=== PATIENT | female | born 2000 ===

== ENCOUNTER 2021-08-26 22:25 | Inpatient (IN) ==
[~2021-08-26] VITALS: Ht 160 cm; Wt 90.1 kg
[2021-08-26 22:48] VITALS: BP 130/71
[2021-08-26] MEDS ORDERED: PENICILLIN G POTASSIUM IV 5 MU in D5W MINI-BAG PLUS 100 ML IV STA (23:54)
[2021-08-26] MEDS ORDERED: LACTATED RINGER'S 1000 ML IV ONE (23:55)
[2021-08-26] MEDS ORDERED: OXYTOCIN DRIP 30 UNITS in IV 1 EA IV PRN ×4 (23:55)
[2021-08-26] MEDS ORDERED: OXYTOCIN INJ 10 UNITS/ML VIAL (J2590) IV PRN (23:55)
[2021-08-26] MEDS ORDERED: LR 1,000 ML IV SCH (23:55)
[2021-08-27 00:48] LABS: HEMATOCRIT 33.5 % (36.0-47.0); HEMOGLOBIN 10.6 g/dl (12.0-15.5); MEAN CORPUSCULAR HEMOGLOBIN 24.8 pg (27.0-33.0); MEAN CORPUSCULAR HGB CONC 31.6 g/dl (32.0-36.5); MEAN CORPUSCULAR VOLUME 78.5 fl (80.0-96.0); PLATELET COUNT, AUTOMATED 314 10^3/uL (150-450); RED BLOOD COUNT 4.27 10^6/uL (4.00-5.40); WHITE BLOOD COUNT 12.3 10^3/uL (4.0-10.0)
--- NOTE | 2021-08-27 00:48 | HPEPDOC ---
Obstetrical History & Physical General Date of Admission Vital Signs Label Value Date Time Patient Temperature 98.6 degrees F 08/26/212247 Temperature Source Temporal 08/26/212247 Blood Pressure Assessment 130/71 (90) 08/26/212247 Source Automatic Cuff (NIBP) Item Value Date Time Urine Color YELLOW 08/26/212302 Urine Appearance HAZY 08/26/212302 Urine pH 6.0 UNITS 08/26/212302 Urine Specific [place] 1.013 08/26/212302 Urine Protein NEGATIVE mg/dL 08/26/212302 Urine Glucose (UA) NEGATIVE mg/dL 08/26/212302 Urine Ketones NEGATIVE mg/dL 08/26/212302 Urine Blood NEGATIVE 08/26/212302 Urine Nitrite NEGATIVE 08/26/212302 Urine Bilirubin NEGATIVE 08/26/212302 Urine Urobilinogen 0.2 mg/dL 08/26/212302 Urine Leukocyte Esterase 3+ H 08/26/212302 Urine RBC (Auto) 10 /HPF H 08/26/212302 Urine WBC (Auto) 8 /HPF H 08/26/212302 Urine Hyaline Casts (Auto) 0 /LPF 08/26/212302 Urine Bacteria (Auto) 1+ H 08/26/212302 Urine Squamous Epithelial Cells 7 /HPF 08/26/212302 Urine Mucus (Auto) SMALL 08/26/21 2303 Aug 26, 2021 at 23:45 Primary Care Physician: Sam Lamar MD History of Present Illness 08/26/21 21 Y.O AT 37.1 WEEKS WITH PELVIC PRESSURE AND CONTRACTIONS GBS NEGATIVE Chief Complaint: Contractions, term Information Provided By: Patient Age: 21 : 1 Term: 0 Pre-term: 0 Abortions: 0 Livin Care Care: Limited Care Number of Visits: 5 Dating Final EDC: Sep 15, 2021 Final EDC by: LMP LMP: Sep 15, 2021 1st Trimester Date: Apr 13, 2021 Weeks + Days: 18 Estimated Date of Confinement: Sep 15, 2021 EGA at Admission: 37 Antepartum Course Diagnos(e)s EARLY TERM LABOR Height (inches): 63 Pre- weight (lbs.): 152 Admission Weight (lbs.): 197 Change in Weight (lbs.): 45 Past Medical History Past Obstetrical History : 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 Past Medical History Surgical History: Denies/None (THYROID,A FIB TYPE 2 DIABETES) Family History Family History MOTHER HYPOTHYROID GRANDMERE A FIB THYROID GRANDPERE HEART AND TYPE 2 DIABETES Social History Social history NON SMOKER NO ETOH NO VAPING TO AD NO VIOLENCE NO RECREATIONAL DRUGS Marital Status: Psychosocial History: No pertinent psych hx * Smoker: non-smoker Alcohol: Denies Drugs: denies Abuse Violence Screening Have you been hit/kicked/slapp: No Have you been sexually assault: No Imunizations Tdap status: current Influenza Status: needs Allergies Coded Allergies: amoxicillin (Verified Allergy, Mild, vomitting, 08/27/21) Physical Examination Physical Examination GENERAL: Alert and oriented times three. BREAST: . ABDOMEN: Gravid and non-tender to touch. FETUS: Is vertex (VTX) by sterile vaginal examination (SVE), fetus is vertex (VTX) by [place]. HEART RATE: Regular rate and rhythm. LUNGS: Clear to auscultation (CTA). EXTREMITIES: No edema. No clonus. Deep tendon reflexes (DTRs) + . Other physical findings ATRAUMATIC FULL RANGE MOTION PERRLA HEART NO MURMUR NORMAL RHYTHM NO RUBS . CHEST CLEAR TO BASES NO WHEEZE NO RHONCHI NO SOB NO RASHES LESIONS OR PURITIS NO ARTHRALGIA NO MYALGIA NO JOINT PAIN. NO URGENCY NO FREQUENCY NO N/V/D/C/F. PELVIC -2 STATION 3 CM 50% EFFACED MID POSITION SOFT SHOW NOTED GBS NEGATIVE Vital Signs/I&O Vital Signs Date Time Temp Pulse Resp B/P (MAP) Pulse Ox O2 Delivery O2 Flow Rate FiO2 08/26/21 22:48 98.6 08/26/21 22:48 130/71 (90) Laboratory Data 24H LABS Laboratory Tests 2 08/26/21 23:03: Urine Color YELLOW, Urine Appearance HAZY, Urine pH 6.0, Urine Specific [place] 1.013, Urine Protein NEGATIVE, Urine Glucose (UA) NEGATIVE, Urine Ketones NEGATIVE, Urine Blood NEGATIVE, Urine Nitrite NEGATIVE, Urine Bilirubin NEGATIVE, Urine Urobilinogen 0.2, Urine Leukocyte Esterase 3+H, Urine WBC (Auto) 8H, Urine RBC (Auto) 10H, Urine Hyaline Casts (Auto) 0, Urine Bacteria (Auto) 1+H, Urine Squamous Epithelial Cells 7, Urine Mucus (Auto) SMALL, Urine Sperm (Auto) Microbiology Microbiology 08/26/21 Urine Culture, Received Pending Pertinent Laboratoy Data Blood Type: A+ RBC Antibody Screen: Negative HIV: Negative Hepatitis B: Negative Rapid Plasma Reagin: Nonreactive Rubella: Immune Varicella: Immune Chlamydia/Gonorrhea: Negative Group B Streptococcus: Negative Quad Screen Test: Unknown Cystic Fibrosis: Negative Anatomy Ultrasound Ultrasound Date: May 24, 2021 Placenta Location: Anterior Normal Anatomy: Yes (510) Estimated Weight (grams): 510 Steroid Therapy Steroid Therapy: No Vaginal Examination Dilation: 3 cm Effacement: 70% Station: -2 Cervical Consistency: Soft Cervical Position: Middle Presentation: Cephalic presentation Assessment Variability: Moderate Accelerations: Present Decelerations: None Tocometer Contractions: Yes Frequency: regular, every 1-5 min. Duration: less than 60 seconds Strength: palpated as mild Assessment/Plan Assessment 21-year-old (G)1 para (P)0 at 37.1 weeks by 20 -week ultrasound. Presents to Labor and Delivery (L&D) . Plan Admit and orient. Dietary Clerk and consent. Diet: FLUIDS Group B Streptococcus (GBS) [negative]. Labs and intravenous (IV) per unit protocol. Counseled on Pitocin and induction of labor (IOL). Lactated Ringers (LR): Bolus 1000 mL, then at 125 mL/hr. Anticipate [normal spontaneous delivery ()]. C-S as appropriate. Labor and Delivery Counseling REVIEWED VAGINAL DELIVERY WITH POSSIBLE ASSISTANCE WITH FORCEPS OR VACUUM ALSO NEED FOR AUGMENTATION WITH PITOCIN, AND POSSIBLE NEED FOR CS FOR OR MATERNAL INDICATIONS RISKS ARE HEMORRHAGE INFECTION PERFORATION REMOTE BLOOD TRANSFUSION FOR LIFE THREATENING HEMORRHAGE REMOTE NEED FOR HYSTERECTOMY FOR BLEEDING UNCONTROLLED. POSSIBLE ADMITTED TO NICU POSSIBLE NEED FOR REPAIR LACERATIONS EPISIOTOMY REPAIR TO BOWEL BLADDER VAGINA RECTUM EXPRESSED UNDERSTANDING SAFE TO PROCEED Sam Lamar MD Aug 27, 2021 00:45
[2021-08-27] MEDS ORDERED: PENICILLIN G POTASSIUM IV 2.5 MU in IV 1 EA IV SCH (03:55)
--- NOTE | 2021-08-27 07:10 | IPNPDOC ---
Text Note Date of Service Item Value Date Time Urine Color YELLOW 08/26/212302 Urine Appearance HAZY 08/26/212302 Urine pH 6.0 UNITS 08/26/212302 Urine Specific [place] 1.013 08/26/212302 Urine Protein NEGATIVE mg/dL 08/26/212302 Urine Glucose (UA) NEGATIVE mg/dL 08/26/212302 Urine Ketones NEGATIVE mg/dL 08/26/212302 Urine Blood NEGATIVE 08/26/212302 Urine Nitrite NEGATIVE 08/26/212302 Urine Bilirubin NEGATIVE 08/26/212302 Urine Urobilinogen 0.2 mg/dL 08/26/212302 Urine Leukocyte Esterase 3+ H 08/26/212302 Urine WBC (Auto) 8 /HPF H 08/26/212302 Urine RBC (Auto) 10 /HPF H 08/26/212302 Urine Hyaline Casts (Auto) 0 /LPF 08/26/212302 Urine Bacteria (Auto) 1+ H 08/26/212302 Urine Squamous Epithelial Cells 7 /HPF 08/26/212302 Urine Mucus (Auto) SMALL 08/26/212302 Vital Signs Label Value Date Time Patient Temperature 98.6 degrees F 08/26/212247 Temperature Source Temporal 08/26/212247 Blood Pressure Assessment 130/71 (90) 08/26/212247 Source Automatic Cuff (NIBP) The patient was seen on 08/27/21. NOTE Item Value Date Time White Blood Count 12.3 10^3/uL H 08/27/2140 Red Blood Count 4.27 10^6/uL 08/27/21 0041 Hemoglobin 10.6 g/dl L 08/27/21 0041 Hematocrit 33.5 % L 08/27/21 0041 Mean Corpuscular Volume 78.5 fl L 08/27/21 0041 Mean Corpuscular Hemoglobin 24.8 pg L 08/27/2140 Mean Corpuscular Hemoglobin Concent 31.6 g/dl L 08/27/21 004 Red Cell Distribution Width 14.9 % H 08/27/21 0041 Platelet Count 314 10^3/uL 08/27/21 0041 08/27 21 REVIEWED PROGRESS TO DATE CONTRACTIONS PETERED OUT REEXAMINATION NO CERVICAL CHANGE AT 37.1 WEEKS US NETTA 2.46 CM 4.53 CM 4.58 CM VERTEX SPONTANEOUS RESPIRATIONS NOTED AND LIMB MOVEMENT NOTED . PLAN TO DISCHARGE AND KEEP FT DRUM APPOINTMENT Maureen NICOLAS I+Kiana VSMaureen I+O Laboratory Tests 08/27/21 00:41 Vital Signs Date Time Temp Pulse Resp B/P (MAP) Pulse Ox O2 Delivery O2 Flow Rate FiO2 08/26/21 22:48 98.6 08/26/21 22:48 130/71 (90) Sam Lamar MD Aug 27, 2021 07:06
== END 2021-08-27 07:00 | disposition home or self-care (01) | DRG 833 ==
LOC: M LDO 22:25 → M LDI 23:45
PROVIDERS: ADMIT Obstetrics & Gynecology; ATTEND Obstetrics & Gynecology
DX: O60.03 Preterm labor without delivery, third trimester (principal); Z3A.37 37 weeks gestation of pregnancy; Z88.1 Allergy status to other antibiotic agents

== ENCOUNTER 2021-09-05 19:41 | Outpatient (CLI) ==
[~2021-09-05] VITALS: Ht 160 cm; Wt 92.0 kg
[2021-09-05 20:01] VITALS: BP 114/73
[2021-09-05] MEDS ORDERED: PRENTAB9 PO (20:03)
[2021-09-05] MEDS ORDERED: FERR325T3 PO (20:03)
[2021-09-05] MEDS ORDERED: COLA100C5 PO (20:03)
[2021-09-05] MEDS ORDERED: HOME MED LIST COMPLETE! XX SCH (20:05)
[2021-09-05 22:01] VITALS: BP 119/79
--- NOTE | 2021-09-05 22:58 | IPNPDOC ---
Text Note Date of Service The patient was seen on 09/05/21. NOTE S: 20yo maco [id number] @38+0, presenting for c/o contractions and pressure. Denies bleeding, LOF, states reasurring FM. O: VSS RNST, FHR 135, +accel, -decel, irregular contractions, mild to palpation Cervical exam 4-5/80/-3, moderate Repeat cervical exam after 2 hours was unchanged A: complicated by gestational anemia contractions at term [id number] P: Discharged to home with labor precautions Reviewed kick counts Keep scheduled f/u VS,Fishbone, I+O VS, Fishbone, I+O Vital Signs Date Time Temp Pulse Resp B/P (MAP) Pulse Ox O2 Delivery O2 Flow Rate FiO2 09/05/21 22:02 110 09/05/21 22:01 18 119/79 (92) 09/05/21 20:01 98.3 98 Room Air RENUKA VALVERDE CNM Sep 05, 2021 22:58
== END 2021-09-05 22:55 | disposition home or self-care (01) ==
LOC: M LDO 19:41
PROVIDERS: ATTEND Registered Nurse
DX: O60.03 Preterm labor without delivery, third trimester (principal); R10.2 Pelvic and perineal pain; O99.013 Anemia complicating pregnancy, third trimester; Z3A.38 38 weeks gestation of pregnancy
CPT/HCPCS: 59025; G0378; G0463

== ENCOUNTER 2021-09-07 16:06 | Inpatient (IN) | payer OTHER ==
[2021-09-07] VITALS (7 sets, daily range): BP systolic 108–125; BP diastolic 57–79
[~2021-09-07] VITALS: Ht 160 cm; Wt 90.3 kg
[~2021-09-07 16:06] MED LIST: COLA100C5 PO; FERR325T3 PO; PRENTAB9 PO
[2021-09-07] MEDS ORDERED: HOME MED LIST COMPLETE! XX SCH (16:35)
[2021-09-07] MEDS ORDERED: OXYTOCIN DRIP 30 UNITS in IV 1 EA IV SCH (18:00)
[2021-09-07] MEDS: LR 1,000 ML IV SCH ×2 (18:00→19:22)
[2021-09-07] MEDS ORDERED: OXYTOCIN DRIP 30 UNITS in IV 1 EA IV PRN (18:00)
--- NOTE | 2021-09-07 18:28 | HPEPDOC ---
Obstetrical History & Physical General Date of Admission Sep 07, 2021 at 17:48 History of Present Illness 21yo G1 at 38+6 presents for leakage of fluid; occurred around noon today, clear fluid. She has worn a pad that required changing. Denies vaginal bleeding. Does not feel painful contractions, is aware of occasional stomach tightening. Endorses positive movement. Was seen 2 days ago for a labor check; was 4- 5cm dilated. 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 Family History Family History mother - keyla thyroiditis maternal grandmother - fib heart and thyroid maternal grandfather - heart disease and diabetes Social History Marital Status: Family situation: Spouse/partner home * Smoker: non-smoker Alcohol: Denies Abuse Violence Screening Have you been hit/kicked/slapp: No Have you been sexually assault: No Imunizations Tdap status: current Influenza Status: current Allergies Coded Allergies: amoxicillin (Verified Allergy, Mild, vomitting, 08/27/21) Medications Scheduled Docusate Sodium (Colace) 100 Mg Capsule, 100 MG PO DAILY No.137/Iron/Folic Acd ( Vitamin Tablet) 1 Each Tablet, 1 TAB PO DAILY Miscellaneous Medications Ferrous Sulfate (Ferrous Sulfate) 325 Mg Tablet.dr, 325 MG PO Physical Examination Physical Examination GENERAL: Alert and oriented times three. ABDOMEN: Gravid and non-tender to touch. FETUS: Is vertex (VTX) by sterile vaginal examination and ultrasound HEART RATE: Regular rate LUNGS: non-labored breathing EXTREMITIES: No edema. Vital Signs/I&O Vital Signs Date Time Temp Pulse Resp B/P (MAP) Pulse Ox O2 Delivery O2 Flow Rate FiO2 09/07/21 17:38 93 16 113/75 (88) 09/07/21 16:37 98.1 Laboratory Data 24H LABS Laboratory Tests 2 09/07/21 17:54: Serology Scanned Report Hepatitis B Testing CBC/BMP hct 35.9 plt 274 Urine Culture: Other (>10k <50k) Pertinent Laboratoy Data Blood Type: A+ RBC Antibody Screen: Negative HIV: Negative Hepatitis B: Negative Rubella: Immune Varicella: Immune Chlamydia/Gonorrhea: Negative Group B Streptococcus: Negative Glucose Tolerance Test: 95 Anatomy Ultrasound Ultrasound Date: May 22, 2021 Placenta Location: Posterior Normal Anatomy: Yes Placenta Previa: No Steroid Therapy Steroid Therapy: No Vaginal Examination Dilation: 5 cm Effacement: 80% Station: -2 Cervical Consistency: Soft Cervical Position: Middle Presentation: Cephalic presentation Position: Vertex (occiput) Assessment Heart Rate (FHR): 150 Variability: Moderate Accelerations: Positive Decelerations: Other (isolated decel from 150s to 110s lasting 90 seconds) Tocometer Contractions: Yes Frequency: irregular Multi-drug resistant Organism: No history of MDRO Assessment/Plan Assessment Melissa Blandon is a 21-year-old (G)1 at 38+6 weeks by 22-week ultrasound. Presents to Labor and Delivery (L&D) for loss of fluid. On exam negative pooling, negative ferning however ultrasound revealed no measurable fluid pocket greater than 2cm. She is either ruptured or oligohydramnios. Induction of labor for oligohydramnios was offered and she accepted. Plan Admit and orient. Property Master and consent. Diet: clear liquid. Group B Streptococcus (GBS) [negative]. Labs and intravenous (IV) per unit protocol. Counseled on Pitocin, rupture of membranes and induction of labor (IOL). Lactated Ringers (LR): at 125 mL/hr. Anticipate [normal spontaneous delivery ()]. C-S as appropriate. Labor and Delivery Counseling We discussed the risks of vaginal delivery including but not limited to infection, hemorrhage. Described hemorrhage protocol in detail including use of methrgine and/or hemabate up to hysterectomy as life saving measure. She agrees to blood transfusion if necesarry and discussed risks including transmission of viral diseases and transfusion reaction. Reviewed indications for delivery and operative delivery including forceps and vacuum. Discussed shoulder dystocia and response including breaking bones if needed to deliver. She indicated understanding of these risks and wishes to proceed. JORGE A MELENDEZ DO Sep 07, 2021 18:27
[2021-09-07 19:24] LABS: HEMATOCRIT 34.2 % (36.0-47.0); HEMOGLOBIN 10.8 g/dl (12.0-15.5); MEAN CORPUSCULAR HEMOGLOBIN 24.5 pg (27.0-33.0); MEAN CORPUSCULAR HGB CONC 31.6 g/dl (32.0-36.5); MEAN CORPUSCULAR VOLUME 77.7 fl (80.0-96.0); PLATELET COUNT, AUTOMATED 298 10^3/uL (150-450); WHITE BLOOD COUNT 12.2 10^3/uL (4.0-10.0)
[2021-09-08] VITALS (46 sets, daily range): BP systolic 91–142; BP diastolic 50–88
--- NOTE | 2021-09-08 01:30 | IPNPDOC ---
Obstetrical Progress Note Date of Service Sep 08, 2021 Subjective Patient comfortable with contractions, states she is feeling them more frequently. Declines pain interventions at this time. Objective Vital Signs Date Time Temp Pulse Resp B/P (MAP) Pulse Ox O2 Delivery O2 Flow Rate FiO2 09/07/21 17:38 93 16 113/75 (88) 09/07/21 16:37 98.1 Assessment Heart Rate (FHR): 150 Variability: Moderate Accelerations: Positive Decelerations: None Heart Rate Tracing: Category I Tocometer Contractions: Yes Frequency: regular, every 2-5 min. Sterile Vaginal Examination Dilation: 6 cm Effacement (%): 80% Station: -2 Cervical Consistency: Soft Cervical Position: Anterior Postion/Presentation: Cephalic presentation Assessment and Plan Age: 21 : 1 Term: 0 Pre-term: 0 Abortions: 0 Livin Weeks & Days 39+0 Status: Reassuring Group B Streptococcus: Negative Anticipate: Vaginal Delivery Additional Comments continue pitocin per protocol reevaluate labor in 2-4 hours unsure if ruptured or not; can consider arom next check routine intrapartum care JORGE A MELENDEZ DO Sep 08, 2021 01:30
[2021-09-08] MEDS: LR 1,000 ML IV SCH ×3 (02:00→12:32)
--- NOTE | 2021-09-08 05:48 | IPNPDOC ---
Obstetrical Progress Note Date of Service Sep 08, 2021 Subjective About one hour she has started to really feel her contractions with a big increase in pain and frequency. Previously she was not aware of her contractoins. Objective Vital Signs Date Time Temp Pulse Resp B/P (MAP) Pulse Ox O2 Delivery O2 Flow Rate FiO2 09/07/21 17:38 93 16 113/75 (88) 09/07/21 16:37 98.1 Assessment Heart Rate (FHR): 145 Variability: Moderate Accelerations: Positive Decelerations: None Heart Rate Tracing: Category I Tocometer Contractions: Yes Frequency: every 2-5 min. Sterile Vaginal Examination Dilation: 6 cm Effacement (%): 90% Station: -1, 0 Cervical Consistency: Soft Cervical Position: Anterior Postion/Presentation: Cephalic presentation Assessment and Plan Age: 21 : 1 Term: 0 Pre-term: 0 Abortions: 0 Livin Weeks & Days 39+0 Status: Reassuring Group B Streptococcus: Negative Anticipate: Vaginal Delivery Additional Comments She remains at 6cm however dilation is now 90% and station descent to -1. She now appears to be in labor and is rather uncomfortable. Amniotomy was offered and declined; she also declines pain management at this time. I think she will continue dilating as her clinical picture now represents labor. reevaluate labor in 4 hours or sooner JORGE A Flor DO Sep 08, 2021 05:48
--- NOTE | 2021-09-08 08:56 | IPNPDOC ---
Obstetrical Progress Note Date of Service Sep 08, 2021 Subjective States contractions are getting more intense and feeling more pelvic pressure. Declines pain medication at this time. Breathing through contractions and rocking on ball. Spouse at bedside for support. Objective Vital Signs Date Time Temp Pulse Resp B/P (MAP) Pulse Ox O2 Delivery O2 Flow Rate FiO2 09/08/21 06:33 129 124/76 (92) 09/07/21 17:38 16 09/07/21 16:37 98.1 Assessment Heart Rate (FHR): 150 Variability: Moderate Accelerations: Present Decelerations: None Heart Rate Tracing: Category I Tocometer Contractions: Yes Frequency: regular, every 1-5 min. Strength: palpated as moderate Assessment and Plan Additional Comments A/P 21yo G 1 P 0 at 39+0 wks gestation admitted for induction due to oligohydramnios A positive/GBS negative/RI/ VSS FHR Cat 1 tracing, reassuring No fluid noted at this time. Last SVE by off going nurse was 7/-1. Will defer SVE at this time until pt reports increased pressure. Address pain needs as they arise, currently desires unmedicated . Continue IOL with pitocin titration. Currently at 20mu/min pitocin. Anticipate Consult physician service as needed JOSE AMBRIZ CNM Sep 08, 2021 08:56
[2021-09-08] MEDS ORDERED: TRANEXAMIC ACID INJection 1,000 MG in NS 100 ML IV PRN (09:50)
[2021-09-08] MEDS ORDERED: LIDOCAINE 1% MDV 20ML VIAL INFIL PRN (09:50)
[2021-09-08] MEDS ORDERED: CARBOPROST TROMETHAMINE 250 MCG/ML AMP IM PRN (09:50)
[2021-09-08] MEDS ORDERED: METHYLERGONOVINE MALEATE 0.2 MG/ML VIAL (J2210) IM PRN (09:50)
--- NOTE | 2021-09-08 09:52 | IPNPDOC ---
Obstetrical Progress Note Date of Service Sep 08, 2021 Subjective Yelling in pain stating 'I can't do this'. Says she is scared of epidural and does not want it. Rocking on hands and knees. Spouse at BS, mother is on facetime. Objective Vital Signs Date Time Temp Pulse Resp B/P (MAP) Pulse Ox O2 Delivery O2 Flow Rate FiO2 09/08/21 09:33 136 20 133/85 (101) Room Air 09/08/21 07:49 98.0 Assessment Heart Rate (FHR): 145 Variability: Moderate Accelerations: Positive Decelerations: None Heart Patterns: Tachycardia Tocometer Contractions: Yes Frequency: regular (every 2 min) Assessment and Plan Additional Comments 21yo G 1 P 0 at 39+0 wks gestation admitted for induction due to oligohydramnios A positive/GBS negative/RI/ VSS FHR Cat 1 tracing, reassuring No fluid noted at this time. SVE with 100% effaced, blood show. About 8cm (check done as pt in hands/knees). Progressing well on pitocin induction. Pt still adamant for no epidural at this time. Reassured her she can change her mind if she desires up until pushing. Refocused patient and coached to re- center. Continue IOL with pitocin titration. Currently at 20mu/min pitocin. Anticipate Consult physician service as needed JOSE AMBRIZ CNM Sep 08, 2021 09:52
[2021-09-08] MEDS ORDERED: FENTANYL 2MCG/ML ROPIVACAINE 0.2% IN 0.9% NACL 100ML IVBAG As Ordered ONE (11:29)
--- NOTE | 2021-09-08 11:46 | IPNPDOC ---
Obstetrical Progress Note Date of Service Sep 08, 2021 Subjective Was called to room at 1016 by nursing staff reporting patient ready to push and complete dilation. Patient in hands and knees. Breathing easily. Spouse at bedside and mother on phone. Objective Vital Signs Date Time Temp Pulse Resp B/P (MAP) Pulse Ox O2 Delivery O2 Flow Rate FiO2 09/08/21 09:33 136 20 133/85 (101) Room Air 09/08/21 07:49 98.0 Assessment Heart Rate (FHR): 150 Variability: Moderate Accelerations: Positive Decelerations: None Heart Rate Tracing: Category I Tocometer Contractions: Yes (every 2min) Assessment and Plan Additional Comments 21yo G 1 P 0 at 39+0 wks gestation admitted this am for induction due to oligohydramnios A positive/GBS negative/RI/ VSS FHR Cat 1 tracing, reassuring Patient stating "I can't do this" "I'm having a panic attack" "Dont touch me" multiple times despite redirecting. Able to push twice for about 8 sec for each contraction. Attempted position change to right lateral, but refused cervical exam or pushing in this position. States she was unable to get into squatting position. Patient finally did consent to a 1 finger check between contractions to assess station of fetus after about an hour of coached pushing in hands/knees. Appreciated cervical lip, patient not completely dilated. Not yet in 2nd stage. Discussed with patient that there is still a cervical lip and I do not recommend continuing to push. Offered to hold lip out of the way with pushing and reviewed this does come with increased discomfort. Also offered option to continue to wait and allow contractions to continue to dilate cervix prior to attempting to push again. Also attempted to elicit her concerns over the epidural. States she was scared but could not elaborate further. Stated she was very tired and 'her body was shutting down'.Reviewed that the epidural may allow her to rest and gain back some of her energy prior to attempting to pushing again. Discussed there was no reason for an alternate route of delivery at this time and we can wait until she is ready. Patient consents to epidural at this time. Anesthesia consulted. Plan to reassess after she is comfortable with epidural. Continue IOL with pitocin titration. Currently at 22mu/min pitocin. Anticipate Consult physician service as needed JOSE AMBRIZM Sep 08, 2021 11:45
[2021-09-08] MEDS ORDERED: REFRIGERATOR IV KEYS XX PRN (11:55)
[2021-09-08] MEDS ORDERED: FENTANYL/ROPIVACAINE/NACL BAG 100 ML EPIDURAL SCH (11:55)
[2021-09-08] MEDS ORDERED: EPIDURAL/PCA KEYS XX PRN (11:55)
[2021-09-08] MEDS ORDERED: LACTATED RINGER'S 1000 ML IV PRN (11:55)
[2021-09-08] MEDS ORDERED: ONDANSETRON 4MG/2ML VIAL IV PRN (11:55)
[2021-09-08] MEDS ORDERED: diphenhydrAMINE 50MG/ML VIAL (J1200) IV PRN (11:55)
[2021-09-08] MEDS ORDERED: NALOXONE INJ 0.4MG/1ML VIAL (J2310 PER 1MG) IV PRN (11:55)
[2021-09-08] MEDS ORDERED: EPIDURAL COMMENT XX SCH (11:55)
--- NOTE | 2021-09-08 13:01 | IPNPDOC ---
Obstetrical Progress Note Date of Service Sep 08, 2021 Subjective Sleeping. Spouse at bedside. Feeling some pelvic pressure. Comfortable now with epidural. Objective Vital Signs Date Time Temp Pulse Resp B/P (MAP) Pulse Ox O2 Delivery O2 Flow Rate FiO2 09/08/21 09:33 136 20 133/85 (101) Room Air 09/08/21 07:49 98.0 Assessment Variability: Moderate Decelerations: Variable Tocometer Contractions: Yes Assessment and Plan Additional Comments 21yo G 1 P 0 at 39+0 wks gestation admitted today for induction due to oligohydramnios A positive/GBS negative/RI/ VSS FHR Cat 2 with intermittent lates (was not called by nursing staff), and 1 prolonged decel that resolved with fluid bolus and position change to right lateral. Indeterminate baseline. Pitocin decreased to 20mu/min SVE per RN at 1229 showing "Lip" 100% effaced & 0 station. Plan passive decent at this time until patient feels additional pelvic pressure and allow for recovery of fetus. Anticipate Consult physician service as needed JOSE AMBRIZ CNM Sep 08, 2021 13:01
[2021-09-08] MEDS: ePHEDrine SULFATE 25 MG/5 ML(5MG/ML) SYRINGE IV PRN ×2 (13:55→14:06)
[2021-09-08] MEDS ORDERED: METHYLERGONOVINE MALEATE 0.2 MG TAB PO PRN (16:20)
[2021-09-08] MEDS ORDERED: DOCUSATE SODIUM 100MG CAPSULE PO PRN (16:20)
[2021-09-08] MEDS ORDERED: ACETAMINOPHEN TAB 650MG DOSE (2X325MG) PO PRN (16:20)
[2021-09-08] MEDS ORDERED: IBUPROFEN 600MG TAB PO PRN (16:20)
[2021-09-08] MEDS ORDERED: ACETAMINOPHEN 500 MG TAB PO PRN (16:20)
[2021-09-08] MEDS ORDERED: DIBUCAINE 1% OINTMENT 30GM TOP PRN (16:20)
--- NOTE | 2021-09-08 16:20 | DNPDOC ---
[facility] Delivery Note Delivery Note Date of Delivery: 08 Sep 2021 @ 1516 hours Pre-Procedure Diagnosis: 1. 21 year old at 39+0 weeks gestation 2. Rh positive 3. Limited Care 4. Induction for Oligohydramnios, questionable PROM Post-Procedure Diagnosis: 1. Normal spontaneous vaginal delivery, term up to 40 weeks gestation 2. Vaginal Laceration Procedure: Spontaneous vaginal delivery Delivery Provider: MAJ Miguelina James CNM Anesthesia: Epidural Estimated Blood Loss: 100 ml Findings: Delivered viable infant female weighing 3150gm (6#15oz), Score 7/9. Complications: None Delivery Summary: Patient is a 21 year old 1 now para 1 who was admitted to labor and delivery for Induction due to oligohydramnios, possible PROM. She progressed to C/C/+3 following epidural and nap. Reassuring FHR tracing throughout pushing. Good directed pushing efforts delivered infant OA, with head restituting to LOT. Right anterior shoulder, posterior shoulder, and corpus delivered easily with maternal pushing efforts. to maternal abdomen for drying, stimulation and assessment by nursing staff. Cord clamped x2 and cut by FOB following cessation of pulse. Placenta delivered with gentle cord traction, in Jerod mechanism, appears complete and intact with 3VC. Trailing membranes noted, lower uterine segment sweep able to remove membranes. Fundus firm with minimal bleeding. Inspection revealed posterior vaginal wall laceration. This was repaired in locking stitch using 3-0 vicryl with good approximation and hemostasis under exiting epidural anesthesia. Noted small right labia minor laceration repaired with 2 interrupted figure of eight. Patient tolerated well. Sponge, needle, instrument count correct following delivery. Vaginal sweep confirmed nothing foreign remaining in vagina. Patient and stable and bonding in skin to skin when I left. Desires to breast feed and use progesterone only pills for control. Plans to start these with visit. I delivered the , completed the repair, and completed the documentation personally. -SHELTON Gutierrez ADINA M. CNM Sep 08, 2021 16:16
[2021-09-08] MEDS: OXYTOCIN DRIP 30 UNITS in IV 1 EA IV PRN ×2 (16:58→17:33)
[2021-09-09 06:00] VITALS: BP 124/68
--- NOTE | 2021-09-09 06:55 | IPNPDOC ---
Progress Note Date of Service: Sep 09, 2021 Day#: 1 Progress Note SUBJECT: 21 yo PPD1 S/P of a viable infant female weighing 3150gm (6# 15oz), Score 7/9. patient is doing well this morning. She has been ambulating, voiding spontaneously without issue and tolerating regular diet. Breast feeding without issue. Reports lochia is minimal. OBJECTIVE: VITAL SIGNS: Within normal limits, afebrile. Alert and oriented times three. Normal work of breathing Heart rate: Regular rate and rhythm Abdomen: Fundus firm at U-2. Soft, NTTP. ASSESSMENT: 21 yo PPD1 S/P of a viable female weighing 3150gm (6#15oz), Score 7/9. patient is doing well this morning. Vitals within normal limits, afebrile, hemodynamically stable with no evidence of infection. PLAN: 1. Discharge to home tomorrow. 2. Tylenol and Motrin for pain. 3. Encourage breast feeding and ambulation. 4. OCP for contraception- Discussed starting after 4 weeks pp due to increased risk of VTE before then. pelvc rest fro 6 weeks 5. Routine PP visit in 6 weeks in clinic. 6. Discussed return precautions at length. VS, I&O, 24H, Fishbone Vital Signs/I&O Vital Signs Date Time Temp Pulse Resp B/P (MAP) Pulse Ox O2 Delivery O2 Flow Rate FiO2 09/09/21 06:00 97.6 104 20 124/68 (86) 99 Room Air I&O- Last 24 Hours up to 6 AM 09/09/21 05:59 Intake Total 5300.4 ml Output Total 700 ml Balance 4600.4 ml MARCO ARNDT MD Sep 09, 2021 06:52
[2021-09-09] MEDS: PRENATAL VITAMINS CHEWABLE TABLET PO SCH (08:29)
[2021-09-09] MEDS: IBUPROFEN 800 MG TAB PO PRN ×2 (11:33→19:44)
[2021-09-09 18:09] VITALS: BP 111/60
--- NOTE | 2021-09-10 05:21 | OBDS ---
[facility] Obstetrical Discharge Sum. Obstetrical Discharge Summary Tavern Operator/Provider: JORGE A MELENDEZ DO Date: Sep 10, 2021 Time: 05:18 : 1 Term: 1 Pre-term: 0 Abortions: 0 Livin VDRL: Non-Reactive Rh: Positive Rubella: Immune Labor uncomplicated Delivery normal spontaneous vaginal delivery Sex: Female Weight: pounds (6), ounces (15), grams (3150) Anesthesia: Regional Anesthesia A/P, Post Course List any complications Admission diagnosis: induction of labor, oligohydramnios Discharge diagnosis: s/p normal spontaneous vaginal delivery Condition at Discharge: Good Discharge Instructions: Home Activity: pelvic rest; otherwise as tolerated Diet: regular Medications: at [place] Follow-up: 6 weeks at [facility] Other: can resume oral contraceptive pills 4 weeks Day of discharge exam: a&o x3 nonlabored breathing abd soft, nontender, fundus firm u-2 negative calf tenderness bilaterally JORGE A MELENDEZ DO Sep 10, 2021 05:21
[2021-09-10] MEDS ORDERED: IBUP80TA PO (05:26)
[2021-09-10] MEDS ORDERED: ACET1TAB55 PO (05:26)
[2021-09-10 06:00] VITALS: BP 117/69
[2021-09-10] MEDS: PRENATAL VITAMINS CHEWABLE TABLET PO SCH (09:47)
[2021-09-10] MEDS: IBUPROFEN 800 MG TAB PO PRN (09:47)
== END 2021-09-10 14:50 | disposition home or self-care (01) | DRG 807 ==
LOC: M LDO 16:06 → M LDI 17:48 → M OBS 09-08 20:15
PROVIDERS: ADMIT Obstetrics & Gynecology; ATTEND Obstetrics & Gynecology
PROC: 3E033VJ Introduction of Other Hormone into Peripheral Vein, Percutaneous Approach (ICD-10-PCS; 2021-09-07)
PROC: 10E0XZZ Delivery of Products of Conception, External Approach (ICD-10-PCS; principal; 2021-09-08)
PROC: 0KQM0ZZ Repair Perineum Muscle, Open Approach (ICD-10-PCS; 2021-09-08)
DX: O41.03X0 Oligohydramnios, third trimester, not applicable or unspecified (principal); Z37.0 Single live birth; Z3A.38 38 weeks gestation of pregnancy; O70.1 Second degree perineal laceration during delivery